=== PATIENT | male | born 1950 | race Two or more races ===

== ENCOUNTER 2025-04-27 12:04 | Inpatient (IN) | payer OTHER ==
[~2025-04-27] VITALS: Ht 170.2 cm; Wt 118.8 kg
[2025-04-27 12:05] VITALS: O2SAT 97
[2025-04-27] MEDS: SODIUM CHLORIDE 0.9% 1,000 ML IV ONE ×2 (13:09→14:47)
[2025-04-27 13:31] LABS: CREATININE 2.2 mg/dL (0.6-1.3); UREA NITROGEN BLOOD 19.0 mg/dL (9-23)
[2025-04-27 13:38] LABS: TROPONIN I HIGH SENSITIVITY 82 ng/L (3.0-53)
[2025-04-27 14:42] LABS: HEMATOCRIT. 39.1 % (42.0-52.0); HEMOGLOBIN. 12.4 g/dL (14.0-18.0); MEAN PLATELET VOLUME 9.1 fl (7.4-10.4); PLATELET 139 x1000/uL (130-400); RED BLOOD CELL COUNT 4.15 mill/uL (4.7-6.1); RED CELL DISTRIBUTION WIDTH 14.8 % (11.6-14.6)
[2025-04-27] MEDS ORDERED: IOHEXOL-300 100 ML BOTTLE ONE (15:00)
[2025-04-27] MEDS ORDERED: ALBUTEROL (0.5%) 2.5MG/0.5ML NEB HHN SCH ×2 (15:00→17:30)
[2025-04-27] MEDS ORDERED: SODIUM BICARBONATE 8.4% 50MEQ/50ML VIAL IV SCH (15:00)
[2025-04-27 15:42] LABS: TROPONIN I HIGH SENSITIVITY 90 ng/L (3.0-53)
[2025-04-27] MEDS ORDERED: ONDANSETRON HCL 4MG/2ML INJ IV PRN (16:00)
[2025-04-27] MEDS ORDERED: AMLODIPINE 5MG TABLET PO SCH (16:00)
[2025-04-27] MEDS ORDERED: ACETAMINOPHEN 325MG TABLET PO PRN (16:00)
[2025-04-27] MEDS ORDERED: IPRATROPIUM/ALBUTEROL 0.5-3(2.5)MG/3ML NEB HHN PRN (16:00)
[2025-04-27] MEDS ORDERED: DEXTROSE 50% WATER 50ML SYRINGE IV PRN (16:00)
[2025-04-27] MEDS: INSULIN REGULAR (HUMULIN R) 1000UNITS/10ML VIAL IV SCH (16:00)
[2025-04-27] MEDS ORDERED: GUAIFENESIN 200MG/10ML SUGAR FREE UDC PO PRN (16:00)
[2025-04-27] MEDS ORDERED: DOCUSATE SODIUM 100MG CAPSULE PO PRN (16:00)
[2025-04-27] MEDS: SODIUM BICARBONATE 8.4% 50MEQ/50ML SYR IV SCH (16:10)
[2025-04-27] MEDS: CALCIUM GLUCONATE 100MG/ML 10ML VIAL IV SCH (16:10)
[2025-04-27] MEDS: DEXTROSE 50% WATER 50ML SYRINGE IV SCH (16:11)
[2025-04-27 16:26] LABS: BAND% 17.0 % (1.0-6.0); LYMPHOCYTES % MANUAL 6.0 % (20.0-50.0); METAMYELOCYTES % 1.0 % (0-0); MONOCYTES % MANUAL 6.0 % (2.0-8.0); MYELOCYTES % 1.0 % (0-0); NEUTROPHILS % MANUAL 69.0 % (45.0-75.0); PLATELET ESTIMATE SLIGHTLY DECREASED
[2025-04-27] MEDS ORDERED: CEFTRIAXONE 1GM/50ML 50 ML IV SCH (17:00)
[2025-04-27] MEDS: CLONIDINE 0.1MG TABLET PO PRN (17:06)
[2025-04-27] MEDS: BLOOD SUGAR DIAGNOSTIC STRIP TEST SCH (17:10)
[2025-04-27] MEDS ORDERED: CALCIUM GLUCONATE 100MG/ML 10ML VIAL IV SCH (17:30)
[2025-04-27] MEDS ORDERED: INSULIN REGULAR (HUMULIN R) 1000UNITS/10ML VIAL IV SCH (17:30)
[2025-04-27] MEDS ORDERED: DEXTROSE 50% WATER 50ML SYRINGE IV SCH (17:30)
[2025-04-27 17:43] VITALS: BP 198/51; PULSE 79; RESP 18; TEMP 36.8; O2SAT 98
[2025-04-27 17:45] VITALS: BP 198/51; PULSE 79; RESP 18; TEMP 36.8072
[2025-04-27] MEDS ORDERED: PANT40TA51 PO (17:54)
[2025-04-27] MEDS ORDERED: INSU100I28 SQ (17:54)
[2025-04-27] MEDS ORDERED: ATOR20TA65 PO (17:54)
[2025-04-27] MEDS: INSULIN LISPRO 100 UNITS/ML SUBCUT SCH (18:12)
[2025-04-27] MEDS: VANCOMYCIN 2GM PMX (XELLIA) 400 ML IV NR (18:17)
[2025-04-27 19:11] LABS: PLATELET 139 x1000/uL (130-400); RED BLOOD CELL COUNT 3.89 mill/uL (4.7-6.1); RED CELL DISTRIBUTION WIDTH 14.4 % (11.6-14.6)
[2025-04-27 19:17] LABS: CLARITY URINE CLEAR (CLEAR); PH URINE 6.0 (4.5-8.0); SPECIFIC GRAVITY URINE 1.031 (1.005-1.030)
[2025-04-27 19:18] LABS: GLUCOSE URINE 3+ (NEGATIVE); KETONES URINE 1+ (NEGATIVE); LEUKOCYTE ESTERASE URINE NEGATIVE (NEGATIVE); NITRITE URINE NEGATIVE (NEGATIVE); OCCULT BLOOD URINE 3+ (NEGATIVE); PROTEIN URINE 3+ (NEGATIVE)
[2025-04-27 19:21] LABS: *AMPHETAMINES SCREEN URINE NEGATIVE (NEGATIVE); *BARBITURATES SCREEN URINE NEGATIVE (NEGATIVE); *BENZODIAZEPINES SCREEN URINE NEGATIVE (NEGATIVE); *COCAINE SCREEN URINE NEGATIVE (NEGATIVE); CANNABINOID URINE SCREEN NEGATIVE (NEGATIVE); ECSTASY MDMA SCREEN URINE NEGATIVE (NEGATIVE); METHADONE URINE SCREEN NEGATIVE (NEGATIVE); OPIATES URINE SCREEN NEGATIVE (NEGATIVE); PHENCYCLIDINE URINE SCREEN NEGATIVE (NEGATIVE)
[2025-04-27 19:26] LABS: COLOR URINE STRAW (YELLOW)
[2025-04-27 19:28] LABS: BACTERIA URINE TRACE; RBC URINE 0-2 /hpf (0-2); SQUAMOUS EPITHELIAL CELL URINE RARE /lpf (RARE/1+)
[2025-04-27 19:29] LABS: COARSE GRANULAR CASTS URINE 0-5 /lpf; CREATININE 1.8 mg/dL (0.6-1.3); HYALINE CASTS URINE 0-5 /lpf; MUCUS URINE TRACE /lpf (NONE/TRACE)
[2025-04-27 19:30] LABS: LDL CHOLESTEROL 38 mg/dL (5-100); TRIGLYCERIDE 146 mg/dL (0-150); UREA NITROGEN BLOOD 18 mg/dL (9-23)
[2025-04-27 19:31] LABS: ASPARTATE AMINOTRANSFERASE 96 IU/L (<34); BILIRUBIN DIRECT 0.5 mg/dL (<=3.0); LACTATE DEHYDROGENASE 500 IU/L (120-246)
[2025-04-27 19:32] LABS: BILIRUBIN TOTAL 1.4 mg/dL (0.1-1.0); PHOSPHORUS 1.8 mg/dL (2.5-4.9); PROTEIN TOTAL 5.8 g/dL (6.0-8.3)
[2025-04-27 19:34] LABS: T4 FREE 0.97 ng/dL (0.89-1.76)
[2025-04-27 20:00] VITALS: BP 147/53; PULSE 68; RESP 18; TEMP 38.1; O2SAT 96
[2025-04-27] MEDS: PIPERACILLIN/TAZO 3.375G/50ML 50 ML IV SCH (22:17)
[2025-04-27] MEDS: INSULIN GLARGINE 100 UNITS/ML SUBCUT SCH (23:16)
[2025-04-28] VITALS: BP 141/57; PULSE 68; RESP 17; TEMP 37.2; O2SAT 97
[2025-04-28 01:02] LABS: CREATININE 1.8 mg/dL (0.6-1.3); UREA NITROGEN BLOOD 20.0 mg/dL (9-23)
[2025-04-28 01:15] LABS: TROPONIN I HIGH SENSITIVITY 133 ng/L (3.0-53)
[2025-04-28 04:00] VITALS: BP 132/75; PULSE 72; RESP 18; TEMP 37.2; O2SAT 97
[2025-04-28 07:48] LABS: BASOPHILS % 0.2 % (0.0-2.0); EOSINOPHILS % 0.3 % (0.0-5.0); HEMATOCRIT. 35.8 % (42.0-52.0); HEMOGLOBIN. 11.6 g/dL (14.0-18.0); LYMPHOCYTES % 7.5 % (20.0-50.0); MEAN PLATELET VOLUME 9.6 fl (7.4-10.4); MONOCYTES % 6.5 % (2.0-8.0); NEUTROPHILS % 85.5 % (40.0-76.0); PLATELET 138 x1000/uL (130-400); RED BLOOD CELL COUNT 3.89 mill/uL (4.7-6.1); RED CELL DISTRIBUTION WIDTH 14.2 % (11.6-14.6)
[2025-04-28 08:00] VITALS: BP 142/66; PULSE 63; RESP 18; TEMP 36; O2SAT 99
[2025-04-28 08:05] LABS: CREATININE 1.8 mg/dL (0.6-1.3); UREA NITROGEN BLOOD 17.0 mg/dL (9-23)
[2025-04-28 08:37] LABS: TROPONIN I HIGH SENSITIVITY 90 ng/L (3.0-53)
[2025-04-28] MEDS: ENOXAPARIN 40MG/0.4ML SYR SUBCUT SCH (09:41)
[2025-04-28] MEDS: POTASSIUM CHLORIDE 20MEQ TABLET SR PO SCH ×2 (09:42→20:00)
[2025-04-28] MEDS: PANTOPRAZOLE SODIUM 40 MG/VIAL IV SCH (09:43)
[2025-04-28] MEDS: AMLODIPINE 10MG TABLET PO SCH (09:43)
[2025-04-28 11:09] LABS: CREATININE 1.9 mg/dL (0.6-1.3); UREA NITROGEN BLOOD 22 mg/dL (9-23)
[2025-04-28 11:12] LABS: PHOSPHORUS 2.2 mg/dL (2.5-4.9)
[2025-04-28 12:00] VITALS: BP 160/46; PULSE 73; RESP 18; TEMP 35.7; O2SAT 97
[2025-04-28 12:26] LABS: HEPATITIS A AB IGM NEGATIVE (Negative)
[2025-04-28 12:27] LABS: HEPATITIS B CORE AB IGM NEGATIVE (Negative)
[2025-04-28 12:28] LABS: HEPATITIS C AB NON REACTIVE (Neg) (Negative)
[2025-04-28] MEDS: ENOXAPARIN 80MG/0.8ML SYR SUBCUT SCH (15:37)
[2025-04-28] MEDS: ASPIRIN 81MG TABLET PO SCH (15:37)
[2025-04-28 16:00] VITALS: BP 150/52; PULSE 69; RESP 18; TEMP 37.1; O2SAT 98
[2025-04-28 18:11] LABS: CLARITY URINE CLEAR (CLEAR); COLOR URINE YELLOW (YELLOW); GLUCOSE URINE 2+ (NEGATIVE); PH URINE 5.5 (4.5-8.0); PROTEIN URINE 3+ (NEGATIVE); SPECIFIC GRAVITY URINE 1.032 (1.005-1.030)
[2025-04-28 18:12] LABS: KETONES URINE NEGATIVE (NEGATIVE); LEUKOCYTE ESTERASE URINE NEGATIVE (NEGATIVE); NITRITE URINE NEGATIVE (NEGATIVE); OCCULT BLOOD URINE 3+ (NEGATIVE); UROBILINOGEN URINE 0.2 E.U./dL (0.2-1.0)
[2025-04-28 18:23] LABS: BACTERIA URINE 3+; SQUAMOUS EPITHELIAL CELL URINE RARE /lpf (RARE/1+); URIC ACID CRYSTALS URINE 1+ /lpf
[2025-04-28 18:28] LABS: CREATININE URINE RANDOM 118.6 mg/dL
[2025-04-28 18:32] LABS: PROTEIN URINE RANDOM 313.0 mg/dL
[2025-04-28 20:00] VITALS: BP 150/54; PULSE 71; RESP 18; TEMP 36.4; O2SAT 98
[2025-04-28] MEDS: POTASSIUM CHLORIDE 20MEQ TABLET SR PO NR (23:02)
[2025-04-29] VITALS: BP 156/57; PULSE 73; RESP 18; TEMP 37.8; O2SAT 99
[2025-04-29 04:00] VITALS: BP 145/55; PULSE 90; RESP 18; TEMP 36.5; O2SAT 99
[2025-04-29 07:40] LABS: BASOPHILS % 0.3 % (0.0-2.0); EOSINOPHILS % 3.0 % (0.0-5.0); HEMATOCRIT. 36.9 % (42.0-52.0); HEMOGLOBIN. 12.0 g/dL (14.0-18.0); LYMPHOCYTES % 7.6 % (20.0-50.0); MEAN PLATELET VOLUME 9.5 fl (7.4-10.4); MONOCYTES % 6.6 % (2.0-8.0); NEUTROPHILS % 82.5 % (40.0-76.0); PLATELET 153 x1000/uL (130-400); RED BLOOD CELL COUNT 4.03 mill/uL (4.7-6.1); RED CELL DISTRIBUTION WIDTH 14.2 % (11.6-14.6)
[2025-04-29 07:54] LABS: CREATININE 1.7 mg/dL (0.6-1.3); UREA NITROGEN BLOOD 19 mg/dL (9-23)
[2025-04-29 07:56] LABS: PHOSPHORUS 1.9 mg/dL (2.5-4.9)
[2025-04-29 08:00] VITALS: BP 161/65; PULSE 68; RESP 20; TEMP 37.5; O2SAT 99
[2025-04-29] MEDS: ENOXAPARIN 120MG/0.8ML SYR SUBCUT SCH (09:17)
[2025-04-29] MEDS: ASPIRIN 81MG TABLET PO SCH (09:17)
[2025-04-29] MEDS: SODIUM CHLORIDE 0.9% 1,000 ML IV SCH (09:19)
[2025-04-29 12:00] VITALS: BP 154/54; PULSE 66; RESP 20; TEMP 36.5; O2SAT 97
[2025-04-29] MEDS: BACLOFEN 10MG TABLET PO SCH (13:54)
[2025-04-29] MEDS: LIDOCAINE 5% PATCH TOP SCH (13:56)
[2025-04-29] MEDS: VANCOMYCIN 1.25GM/250ML IV SCH (13:56)
[2025-04-29 16:00] VITALS: BP 166/55; PULSE 70; RESP 20; TEMP 36.7; O2SAT 97
[2025-04-29 20:00] VITALS: BP 145/55; PULSE 69; RESP 18; TEMP 36.6; O2SAT 98
[2025-04-30] VITALS: BP 139/50; PULSE 71; RESP 18; TEMP 36.7; O2SAT 99
[2025-04-30 02:54] LABS: INR 1.0
[2025-04-30 04:00] VITALS: BP 142/51; PULSE 70; RESP 18; TEMP 36.6; O2SAT 98
[2025-04-30 07:14] LABS: BASOPHILS % 0.8 % (0.0-2.0); EOSINOPHILS % 6.4 % (0.0-5.0); HEMATOCRIT. 33.4 % (42.0-52.0); HEMOGLOBIN. 11.1 g/dL (14.0-18.0); LYMPHOCYTES % 20.9 % (20.0-50.0); MEAN PLATELET VOLUME 9.8 fl (7.4-10.4); MONOCYTES % 8.2 % (2.0-8.0); NEUTROPHILS % 63.7 % (40.0-76.0); PLATELET 173 x1000/uL (130-400); RED BLOOD CELL COUNT 3.64 mill/uL (4.7-6.1); RED CELL DISTRIBUTION WIDTH 14.0 % (11.6-14.6)
[2025-04-30 07:28] LABS: CREATININE 1.6 mg/dL (0.6-1.3); UREA NITROGEN BLOOD 18 mg/dL (9-23)
[2025-04-30 07:30] LABS: PHOSPHORUS 2.7 mg/dL (2.5-4.9)
[2025-04-30 08:00] VITALS: BP 178/70; PULSE 62; RESP 18; TEMP 37.2; O2SAT 99
[2025-04-30] MEDS ORDERED: REGADENOSON 0.4 MG/5 ML IV ONE (08:45)
[2025-04-30 12:00] VITALS: BP 181/67; PULSE 93; RESP 18; TEMP 36.5; O2SAT 97
[2025-04-30] MEDS: LISINOPRIL 10MG TABLET PO SCH (14:22)
[2025-04-30 16:00] VITALS: BP 152/83; PULSE 137; RESP 20; TEMP 36.2; O2SAT 96
[2025-04-30 20:00] VITALS: BP 156/56; PULSE 64; RESP 18; TEMP 36.7; O2SAT 97
[2025-05-01] VITALS: BP 159/63; PULSE 65; RESP 16; TEMP 36.7; O2SAT 98
[2025-05-01 04:00] VITALS: BP 154/55; PULSE 62; RESP 16; TEMP 36.5; O2SAT 97
[2025-05-01 08:00] VITALS: BP 131/65; PULSE 61; RESP 18; TEMP 37; O2SAT 100
[2025-05-01 08:34] LABS: BASOPHILS % 0.8 % (0.0-2.0); EOSINOPHILS % 6.0 % (0.0-5.0); HEMATOCRIT. 36.0 % (42.0-52.0); HEMOGLOBIN. 12.0 g/dL (14.0-18.0); LYMPHOCYTES % 18.7 % (20.0-50.0); MEAN PLATELET VOLUME 9.8 fl (7.4-10.4); MONOCYTES % 10.0 % (2.0-8.0); NEUTROPHILS % 64.5 % (40.0-76.0); PLATELET 203 x1000/uL (130-400); RED BLOOD CELL COUNT 3.94 mill/uL (4.7-6.1); RED CELL DISTRIBUTION WIDTH 14.4 % (11.6-14.6)
[2025-05-01 09:07] LABS: COMPLEMENT C3 174 mg/dL (82-167); COMPLEMENT C4 31 mg/dL (12-38)
[2025-05-01 09:21] LABS: CREATININE 1.6 mg/dL (0.6-1.3); UREA NITROGEN BLOOD 17 mg/dL (9-23)
[2025-05-01 09:23] LABS: PHOSPHORUS 2.6 mg/dL (2.5-4.9)
[2025-05-01] MEDS ORDERED: REGADENOSON 0.4 MG/5 ML IV ONE (09:44)
[2025-05-01 12:00] VITALS: BP 178/59; PULSE 65; RESP 18; TEMP 36.4; O2SAT 99
[2025-05-01] MEDS ORDERED: ATOR20TA65 PO (14:45)
[2025-05-01] MEDS ORDERED: ASPI-1160 PO (14:45)
[2025-05-01] MEDS ORDERED: LISI10TA26 PO (14:45)
[2025-05-01] MEDS ORDERED: AMOX1TAB16 MT (14:45)
[2025-05-01] MEDS ORDERED: BLOO-340 HHN (14:45)
[2025-05-01] MEDS ORDERED: AMLO10TA80 PO (14:45)
[2025-05-01] MEDS ORDERED: LIDO700A30 TOP (14:45)
[2025-05-01] MEDS ORDERED: BACL-141 PO (14:45)
[2025-05-01] MEDS ORDERED: INSU100V49 SUBCUT (14:45)
[2025-05-01 15:07] LABS: ANTI-NUCLEAR ANTIBODIES DIRECT Negative (Negative)
[2025-05-01 15:45] VITALS: BP 145/68; PULSE 66; RESP 18; TEMP 98.1
[2025-05-01 16:00] VITALS: BP 184/57; PULSE 66; RESP 18; TEMP 36.7; O2SAT 97
[2025-05-01] MEDS ORDERED: APIX5TAB4 PO (18:32)
[2025-05-01] MEDS: HYDRALAZINE 20MG/ML VIAL IV NR (18:32)
[2025-05-01] MEDS ORDERED: ENOXAPARIN 40MG/0.4ML SYR SUBCUT SCH (21:00)
[2025-05-02 09:07] LABS: ATYPICAL P-ANCA <1:20 titer (Neg:<1:20); CYTOPLASMIC C-ANCA <1:20 titer (Neg:<1:20); PERINUCLEAR P-ANCA <1:20 titer (Neg:<1:20)
[2025-05-02 14:10] LABS: ANTI-MYELOPEROXIDASE AB < 0.2 units (0.0-0.9); ANTI-PROTEINASE 3 ABS < 0.2 units (0.0-0.9)
== END 2025-05-01 19:30 | disposition home or self-care (01) | DRG 557 ==
LOC: ER 12:04 → 8EST 14:47 → EDBEDREQ 14:55 → EDBEDREQTM 14:55 → 8WST 16:48
PROVIDERS: ADMIT Internal Medicine; ATTEND Internal Medicine
DX: M62.82 Rhabdomyolysis (principal); I21.4 Non-ST elevation (NSTEMI) myocardial infarction; N17.0 Acute kidney failure with tubular necrosis; I16.9 Hypertensive crisis, unspecified; E83.51 Hypocalcemia; D64.9 Anemia, unspecified; E11.22 Type 2 diabetes mellitus with diabetic chronic kidney disease; N39.0 Urinary tract infection, site not specified; I12.9 Hypertensive chronic kidney disease with stage 1 through stage 4 chronic kidney disease, or unspecified chronic kidney disease; N18.9 Chronic kidney disease, unspecified; Z66 Do not resuscitate; M48.061 Spinal stenosis, lumbar region without neurogenic claudication; D72.825 Bandemia; E87.5 Hyperkalemia; E87.6 Hypokalemia; R80.9 Proteinuria, unspecified; M47.816 Spondylosis without myelopathy or radiculopathy, lumbar region; E11.65 Type 2 diabetes mellitus with hyperglycemia; E78.00 Pure hypercholesterolemia, unspecified; I48.0 Paroxysmal atrial fibrillation; Z79.01 Long term (current) use of anticoagulants; Z79.4 Long term (current) use of insulin; Z79.899 Other long term (current) drug therapy
CPT/HCPCS: 36415; 71045; 72132; 73521; 76770; 78452; 80048; 80061; 80076; 80202; 80305; 81003; 82140; 82550; 82570; 82962; 83036; 83520; 83605; 83615; 83735; 83880; 84100; 84145; 84156; 84439; 84443; 84484; 84550; 85025; 85027; 86038; 86160; 86256; 86705; 86709; 87077; 87186; 87340; 93005; 93017; 93306; 97162; 97166; 99291; A4606; A9500; J0360; J0612; J1650; J1815; J2470; J2543; J2785; J3373; J3490; J7030; Q9967